=== PATIENT | male | born 1970 | race Caucasian/White ===

== ENCOUNTER → 2017-09-12 | Outpatient (CLI) | payer OTHER | LOC: FIMAGING 17:24 | PROVIDERS: ATTEND Surgery | DX: N20.1 Calculus of ureter (principal) ==

== ENCOUNTER → 2018-04-29 | Outpatient (CLI) | payer OTHER | LOC: FIMAGING 09:05 | PROVIDERS: ATTEND Specialist | DX: N20.0 Calculus of kidney (principal); K59.00 Constipation, unspecified ==